=== PATIENT | male | born 1950 | race Caucasian/White ===

== ENCOUNTER → 2018-09-25 | Outpatient (CLI) | payer MEDICARE, BC ==
--- NOTE | 2018-09-25 16:25 | RAD ---
PA and lateral chest x-ray without comparison for cough, duration unspecified. FINDINGS: The lungs are clear. The cardiomediastinum is grossly unremarkable. No significant soft tissue or osseous abnormality. IMPRESSION: 1. No acute cardiopulmonary abnormality. Electronically signed by: Trino Kirk MD (09/25/2018 4:21 PM) [id number]
== END | disposition home or self-care (01) ==
LOC: LAB 09:33
PROVIDERS: ATTEND Internal Medicine Pulmonary Disease
DX: R05 Cough (principal)
CPT/HCPCS: 71046